=== PATIENT | female | born 1990 | race Caucasian/White ===

== ENCOUNTER 2022-03-22 11:35 | Emergency (ER) | payer OTHER ==
[2022-03-22] MEDS ORDERED: fentaNYL 100 MCG/2 ML SDV IVPUSH ONE (12:01)
== END 2022-03-22 13:19 | disposition home or self-care (01) ==
LOC: JD.ED 11:35
DX: S06.0X9A Concussion with loss of consciousness of unspecified duration, initial encounter (principal); W22.8XXA Striking against or struck by other objects, initial encounter
CPT/HCPCS: 70450; 72125; 72170; 96374; 99284; J3010; 99282